=== PATIENT | male | born 2000 | race Two or more races ===

== ENCOUNTER 2025-05-31 09:56 | Emergency (ER) | payer MEDICAID, SELFPAY ==
[2025-05-31 10:11] VITALS: BP 142/83; PULSE 92; RESP 18; TEMP 36.6; O2SAT 97; BMI 27.1
--- NOTE | 2025-05-31 10:20 | XR_ITS ---
Examination: Shoulder,left, 3 views Technique: Shoulder AP internal rotation, AP external rotation, Y view shoulder, 3 views Exam date and time :July 31, 2025, 1028 hrs. Indications: Weightlifting injury to the shoulder today, shoulder pain. Findings: No shoulder fracture or dislocation Mild separation at the AC joint Impression: Recommend bilateral AC joint views follow-up to confirm mild left AC joint separation
--- NOTE | 2025-05-31 10:21 | XR_ITS ---
Examination: PA chest single view Technique: Upright PA chest single view Date and time: May 31, 2025 1028 hrs., Comparison 05/23/2023 Indications: Chest pain today. Findings: Normal heart size. Lungs are clear. The osseous structures are intact Impression: No active disease.
--- NOTE | 2025-05-31 11:25 | EDNOTE_ITS ---
ED Back Injury Pain RME/HPI General Chief Complaint: Back Pain/Injury Stated Complaint: Back pain coming from gym Time Seen by Provider: 05/31/25 10:01 Arrival date/time: 05/31/25 09:56 24-year-old male presents to the emergency department today complaint of upper back pain patient reports he was working out in the gym and believes this is the cause of his pain patient reports left shoulder pain and upper back pain worse with movement Limitations: no limitations Related Data Previous Rx's ?Medication ?Instructions ?Recorded artifi.tears(hypromellose)(PF) 0.3 2 drp ophthalmic (e ye) Q1H PRN dry 08/16/22 % eye drops eye(s) #10 mL prednisone 50 mg tablet 50 mg PO QDAY #7 tabs cyclobenzaprine 10 mg tablet 10 mg PO TID PRN muscle s pasm 10 05/31/25 days #30 tab-caps ibuprofen 800 mg tablet 800 mg PO TID PRN pain #30 t abs 05/31/25 Allergies Allergy/AdvReac Type Severity Reaction Status Date / Time No Known Allergies Allergy Verified 05/31/25 10:00 Review of Systems Review of Systems Systems Reviewed: All systems reviewed, normal except as documented Constitutional Constitutional: Reports system reviewed and no additional complaints, except as documented, Denies fever(s) and Denies headache(s) Eyes Eyes: Reports system reviewed and no additional complaints, except as documented and Denies blurry vision ENT Ears, Nose, Mouth, and Throat: Reports system reviewed and no additional complaints, except as documented, Denies headache(s), Denies nasal congestion and Denies nasal discharge Cardiovascular Cardiovascular: Reports system reviewed and no additional complaints, except as documented, Denies chest pain and Denies dyspnea Respiratory Respiratory: Reports system reviewed and no additional complaints, except as documented, Denies chest congestion, Denies cough and Denies dyspnea Gastrointestinal Gastrointestinal: Reports system reviewed and no additional complaints, except as documented and Denies abdominal pain Musculoskeletal Musculoskeletal: Reports system reviewed and no additional complaints, except as documented and Reports back pain Integumentary/Breasts Skin/Breast: Reports system reviewed and no additional complaints, except as documented and Denies rash Neurologic Neurologic: Reports system reviewed and no additional complaints, except as documented, Reports as per HPI and Denies headache(s) Past Medical History Past Medical History CARDIAC: Negative Congestive Heart Failure RESPIRATORY: Positive Asthma; Negative Chronic Obstructive Pulmonary Disease (COPD) GENITOURINARY: Negative Renal Disease ENDOCRINE: Negative Diabetes Mellitus Type 1 or Diabetes Mellitus Type 2 Social History SMOKING STATUS: Never smoker ED Exam General Limitations: Present no limitations General appearance: Present alert and in no apparent distress Head Head exam: Present atraumatic, normocephalic and normal inspection Eye Eye exam: Present normal appearance, PERRL and EOMI; Absent conjunctival injection ENT ENT exam: Present normal exam, normal oropharynx and mucous membranes moist Neck Neck exam: Present normal inspection, full ROM and trachea midline Chest Chest inspection: Present normal inspection and symmetric chest wall rise Respiratory Respiratory exam: Present normal lung sounds bilaterally; Absent respiratory distress Cardiovascular Cardiovascular exam: Present regular rate, normal rhythm and normal heart sounds Abdominal Exam Abdominal exam: Present soft and normal bowel sounds; Absent distention, tenderness, guarding, rebound or rigidity Extremities Exam Extremities exam: Present normal inspection and full ROM Back Exam Back exam: Present normal inspection, full ROM, tenderness, muscle spasm and paraspinal tenderness; Absent CVA tenderness (R) or CVA tenderness (L) Back 1 view image: 2 1. Pain Neurological Exam Neurological exam: Present alert, oriented X3 and CN II-XII intact Psychiatric Psychiatric exam: Present normal affect and normal mood Skin Skin exam: Present warm, dry, intact and normal color Course Quality Measures none Orders Category Date Time Status XR chest 1V portable Stat Exams 05/31/25 10:21 Completed XR shoulder LT min 2V Stat Exams 05/31/25 10:20 Completed Ibuprofen Tab [Motrin Tab] Med 05/31/25 10:20 Discontinued 800 mg PO X1 ONE Vital Signs Vital signs: Vital Signs Temperature 97.8 F 05/31/25 10:11 Pulse Rate 92 05/31/25 10:11 Respiratory Rate 18 05/31/25 10:11 Blood Pressure 142/83 H 05/31/25 10:11 Pulse Oximetry (%) 97 05/31/25 10:11 Oxygen Delivery Method Room Air 05/31/25 10:11 O2 saturation 97% room air with normal limits Back Pain / Injury MDM Narrative MDM Narrative:: 24-year-old male presents to the emergency department today complaint of upper back pain patient reports he was working out in the gym and believes this is the cause of his pain patient reports left shoulder pain and upper back pain worse with movement On exam patient well-appearing patient does not appear toxic no acute distress Imaging obtained no acute emergent findings noted Symptoms highly consistent with muscle spasm Patient discharged home in no distress to follow-up with primary care doctor in the next 24 to 48 hours and for any worsening symptoms to return to the ER immediately Patient data External records reviewed:: [facility] previous records Clinical information provided by:: patient Social determinants that could affect healthcare access:: none Patient has the following chronic illnesses:: None How is presenting disease/condition affected by chronic disease/condition?: no chronic disease Evaluation data The following diagnostics were reviewed and interpreted by me:: radiology exam(s) Lab and/or radiology exams considered but not ordered:: Radiology Interpretation Summary: Reviewed by me Medications / Prescriptions Medications or Prescriptions considered but not ordered:: Given Medication administrations:: Medication Administration History Discontinued Medications Ibuprofen (Ibuprofen Tab 400 Mg Tablet) 800 mg PO X1 ONE Stop: 05/31/25 10:21 Last Admin: 05/31/25 12:28 Dose: 800 mg Documented By: Given Consultations Consultation(s) initiated? (list below): No Diagnosis Differential diagnosis back pain/injury: sciatica, strain of lumbar region, thoracic back pain and other Most likely diagnosis given after review of the tests above:: Muscle strain Admission Indicated Admission indicated?: not indicated Admission Request Was there a request for admission?: No Disposition Plan Disposition Plan: Discharge Discharge Attestation Discharge Attestation: The patient and all family members were given an opportunity to ask questions and understood the discharge instructions. Discharge instructions specifically effects, indications for sooner follow up or return to the emergency department, and the expected course of current diagnosis. Patient condition: Stable Discharge Plan Plan Patient Disposition: HOME (Self Care) Discharge Disposition comment: Stable Prescriptions/Referrals Prescriptions/Med Rec: New cyclobenzaprine 10 mg tablet 10 mg PO TID PRN (Reason: muscle spasm) 10 Days Qty: 30 0RF ibuprofen 800 mg tablet 800 mg PO TID PRN (Reason: pain) Qty: 30 0RF No Action prednisone 50 mg tablet 50 mg PO QDAY Qty: 7 0RF artifi.tears(hypromellose)(PF) 0.3 % drops 2 drp ophthalmic (eye) Q1H PRN (Reason: dry eye(s)) Qty: 10 0RF Rx Instructions: while awake; not to exceed 16 doses per 24 hour period Referrals: Darryl Boucher MD [Primary Care Provider] - 06/01/25 Problem List Clinical Impression: Muscle strain of left upper back Patient/Caregiver Discharge Instructions Education Materials: ED Back Sprain/Strain Additional Instructions: Please follow up with your primary care doctor in the next 24-48hrs for any worsening symptoms return here immediately Print Language: Israeli Stand Alone Forms: Caroline Award Info., Work/School Release, Patient Portal Info Letter PA/SALES REPRESENTATIVE [employer] Supervising Physician PA/SAL[employer] REPRESENTATIVE [employer] Supervising Physician: Dr. dennis
[2025-05-31] MEDS: IBUPROFEN TAB 400 MG TABLET 800 MG PO (12:28)
== END 2025-05-31 13:45 | disposition home or self-care (01) ==
PROVIDERS: Emergency Provider Family Medicine; PCP Family Medicine
DX: S29.012A Strain of muscle and tendon of back wall of thorax, initial encounter (principal); S49.92XA Unspecified injury of left shoulder and upper arm, initial encounter; X58.XXXA Exposure to other specified factors, initial encounter; Y93.B9 Activity, other involving muscle strengthening exercises; Y92.39 Other specified sports and athletic area as the place of occurrence of the external cause
CPT/HCPCS: 71045; 73030; 99283; A9270